=== PATIENT | female | born 1985 | race Caucasian/White ===

== ENCOUNTER 2018-04-22 21:03 | Emergency (ER) | payer MEDICAID, SELFPAY ==
[2018-04-22 21:10] VITALS: BP 124/81; PULSE 86; RESP 18; TEMP 37.1; O2SAT 97
--- NOTE | 2018-04-22 21:14 | ED.GENADUL_ITS ---
Disposition Clinical Impression: Complicated UTI (urinary tract infection) Disposition: HOME Condition: Good Instructions: Urinary Tract Infection in Women (ED), Ciprofloxacin (By mouth), Phenazopyridine (By mouth) Additional Instructions: You should be feeling better in the next couple of days. Follow-up with primary care early next week if you are not. You may use Motrin or Tylenol for fever and pain. Antibiotic as prescribed. Cut back on activities for the next couple of weeks while on antibiotic due to the risk of tendon injury. Return to ED for persistent high fevers, worsening pain, vomiting, other concerns. Prescriptions: Ciprofloxacin [Cipro] 500 mg PO BID #13 tab Phenazopyridine [Pyridium] 100 mg PO TID #5 tab Referrals: Edgar Hutchins [Primary Care Provider] - Medical Decision Making - Lab Data Results reviewed for labs ordered during visit: Yes - EKG Data -: EKG Interpreted by Me EKG shows normal: sinus rhythm, axis, intervals Rate: normal Interpretation: normal EKG - Medical Decision Making Patient here with urinary type symptoms associated with some systemic symptoms suggesting complicated UTI. Urine test is negative. Vital signs are normal. Urinalysis is positive for UTI. She has not been on antibiotics recently. As this is a complicated UTI a fluoroquinolone is recommended. EKG is normal with no QT prolongation. I did discuss the adverse effects including Achilles tendon rupture with the patient. She will cut back on her activities for the next couple weeks. She will get her first dose of Cipro here. Follow- up with primary care on Tuesday if not doing better. Return to ED for persistent high fever, increasing abdominal or back pain, vomiting. History of Present Illness - General Chief complaint: Urinary Stated complaint: ?UTI Time Seen by Provider: 04/22/18 21:14 Source: patient Mode of arrival: ambulatory Limitations: no limitations - History of Present Illness Initial comments: Patient presents to the emergency department with complaints of urinary symptoms including frequency, urgency, dysuria. She has had symptoms for just under a week. She had been traveling in [place] and is now back and wants to be evaluated. She has felt warm but has not actually taken her temperature. She has had no chills. She has nausea but no vomiting. She has some mild abdominal discomfort and is now having some low back pain. She denies any vaginal symptoms. She denies being , reports having the Mirena IUD in place. There is otherwise healthy. - Related Data Ciprofloxacin [Cipro] 500 mg PO BID #13 tab 04/22/18 Levonorgestrel [Mirena] 1 each IY 04/22/18 Phenazopyridine [Pyridium] 100 mg PO TID #5 tab 04/22/18 Allergies Allergy/AdvReac Type Severity Reaction Status Date / Time wheat Allergy Intermediate Hives Unverified 04/22/18 21:21 ethinyl estradiol Allergy Mild Itching Unverified 04/22/18 21:21 [From Seasonale contraceptive] levonorgestrel Allergy Mild Itching Unverified 04/22/18 21:21 [From Seasonale contraceptive] Review of Systems Constitutional: fever (subjective). denies: chills ENT: denies: throat pain, congestion Respiratory: denies: cough, shortness of breath Cardiovascular: denies: chest pain, palpitations Gastrointestinal: abdominal pain (mild discomfort), nausea. denies: vomiting, diarrhea Genitourinary: urgency, dysuria, frequency. denies: hematuria, discharge Musculoskeletal: back pain (mild low back pain) Skin: denies: rash Neurological: denies: headache, weakness, numbness Past Medical History - Past Medical History Medical history: no medical history Surgical history: other (orthopedic procedures) - Social History Smoking status: never smoker General Exam - General Limitations: no limitations General appearance: alert, in no apparent distress - Head Head exam: Present: atraumatic, normocephalic - Eye Eye exam: Present: normal apperance - ENT ENT exam: Present: mucous membranes moist - Respiratory Respiratory exam: Present: normal lung sounds bilaterally - Cardiovascular Cardiovascular Exam: Present: regular rate, normal rhythm, normal heart sounds - GI/Abdominal GI/Abdominal exam: Present: soft. Absent: distended, tenderness, guarding, rebound - Back Exam Back exam: Present: full ROM. Absent: tenderness, CVA tenderness (R), CVA tenderness (L) - Neurological Exam Neurological exam: Present: alert, oriented X3, CN II-XII intact. Absent: motor sensory deficit - Psychiatric Psychiatric exam: Present: normal affect, normal mood - Skin Skin exam: Present: warm, dry, intact
[2018-04-22 21:51] LABS: Bilirubin Negative (Negative); Blood Small (Negative); Clarity Cloudy; Glucose Negative (Negative); Ketones Negative (Negative); Leukocyte Esterase Moderate (Negative); Nitrite Negative (Negative); Urobilinogen 0.2 EU/dL (Up TO 0.2); pH 6.5 (5-8)
[2018-04-22 22:13] LABS: WBC >50 HPF (0-5)
[2018-04-22 22:14] LABS: Bacteria Few HPF (Negative); C & S Indicated? Yes; Casts Negative LPF (Negative); Crystals Negative HPF (Negative); Epithelial Cells Few HPF (Negative); Mucus Negative (Negative)
[2018-04-22] MEDS: Ciprofloxacin 500 MG TAB PO (22:21)
[2018-04-22] MEDS: Phenazopyridine 100 MG TAB PO (22:24)
== END 2018-04-22 22:45 | disposition home or self-care (01) ==
PROVIDERS: Emergency Provider Emergency Medicine; PCP Internal Medicine
DX: N39.0 Urinary tract infection, site not specified (principal); R11.0 Nausea; M54.5 Low back pain; R50.9 Fever, unspecified; Z87.440 Personal history of urinary (tract) infections
CPT/HCPCS: 81025; 87077; 93005; 99283; 81003; 81015; 87086; 87186; 93010

== ENCOUNTER 2019-01-23 08:43 | Outpatient (REF) | payer MEDICAID, SELFPAY ==
--- NOTE | 2019-01-23 08:00 | PAPFT_PTH ---
PATIENT: Kristine Condon LOC: [facility] U#:[id number] AGE/SX: 33/F ROOM: RE01/23/[address]: Bernadette Smith : 1985 BED: DIS: 01/23/2019 SPEC #: [id number] RECD: 01/24/19 12:55 STATUS: KAREN REKathy #: [id number] TYLER: 01/23/19 08:[address]: Bernadette Smith DEPT: [facility] Cytology RECD BY: Nehal Andino Tissues: 1 - CX/ENDOCX FOR PAP SMEARS Procedures: PAP THIN PREP/UVM Screening Comments: [id number] (CHLAMYDIA/GC) (UNSATISFACTORY FOR EVALUATION)
[2019-01-25 14:45] LABS: Chlamydia Result Negative; GC Result Negative; Specimen Description SEE COMMENTS
== END 2019-01-23 09:03 ==
LOC: NCHCN 08:43
PROVIDERS: PCP Registered Nurse; Visit Provider Registered Nurse
DX: Z12.4 Encounter for screening for malignant neoplasm of cervix (principal); Z11.3 Encounter for screening for infections with a predominantly sexual mode of transmission; Z11.51 Encounter for screening for human papillomavirus (HPV)
CPT/HCPCS: 87491; 87591; 88142; 87624

== ENCOUNTER 2019-04-22 22:47 | Emergency (ER) | payer MEDICAID, SELFPAY ==
[2019-04-22 22:51] VITALS: BP 120/79; PULSE 95; RESP 18; TEMP 37.8; O2SAT 99
--- NOTE | 2019-04-22 23:03 | ED.GENADUL_ITS ---
Discharge Plan Disposition Patient Disposition: HOME Condition: Stable Discharge Details Chief Complaint: Abd Prob Clinical Impression: Mesenteric adenitis, Abdominal pain, Diarrhea Primary Care Provider: ONDINA LUA ED Provider: Dawood Curry Home Meds and New Rx's Prescriptions: New metronidazole [Flagyl] 500 mg tablet 500 mg PO TID Qty: 21 RF: 0 ciprofloxacin HCl 500 mg tablet 500 mg PO BID Qty: 14 RF: 0 ondansetron 4 mg tablet,disintegrating 4 mg PO Q8H PRN (Reason: nausea and vomiting) Qty: 30 RF: 0 Continued Mirena 1 EACH intrauterine device 1 ea Intrauterine DAILY RF: 0 Discharge Instructions Instructions: Mesenteric Adenitis (ED) Additional Instructions: if you are not better within 1-2 weeks see your primary care provider if you feel you are becoming more ill, having worsening pain or persistent vomit return to the emergency department for reevaluation Medical Decision Making 33 yo female who denies chronic medical problems comes in with chief complaint of diarrhea and abdominal pain. She states since she has had multiple loose stools and upper abdominal discomfort with nausea, no vomit. Has also had subjective fevers. Denies recent travel, new meds or abx. She is in no distress on exam, does have pain with percussion to the upper abdomen luq/epigastric/ruq tenderness. Given her symptoms will obtain lab work to eval for pancreatitis, hepatitis and given location of pain and symptoms will obtian ct to eval for cholecystitis, colitis, enteritis. labs show no significant abnormality, ct shows mesenteric adneitis. Only has mild upper abdominal pain. Given her degree of symptoms and diarrhea, feel coverage with abx indiacted to cover for early colitis with cipro/flagyl and d/c home, return precautions given Differential Diagnosis colitis, pancreatitis, hepatitis, cholecystitis Imaging Data Radiologic Study: Attestation: I personally reviewed and interpreted this imaging study as follows: Imaging: CT Scan Radiologist's impression: EXAM: CT Abdomen and Pelvis With Contrast EXAM DATE/TIME: 04/22/2019 11:02 PM CLINICAL HISTORY: 33 years old, female; Localized; Patient HX: Diarrhea for 1 week and upper abdominal pain radiating into flank bilateral TECHNIQUE: Imaging protocol: Computed tomography images of the abdomen and pelvis with intravenous contrast. Radiation optimization: All CT scans at this facility use at least one of these dose optimization techniques: automated exposure control; mA and/or kV adjustment per patient size (includes targeted exams where dose is matched to clinical indication); or iterative reconstruction. Contrast material: OMNIPAQUE 350; Contrast volume: 100 ml; Contrast route: IV; COMPARISON: No relevant prior studies available. FINDINGS: Liver: No suspicious lesions. Gallbladder and bile ducts: No acute or concerning findings. Pancreas: Unremarkable. No ductal dilation. Spleen: No suspicious lesions. Adrenals: No suspicious nodule. Kidneys and ureters: No hydro. No suspicious lesions. Stomach and bowel: No inflammed or dilated loops. Appendix: No evidence of appendicitis. Intraperitoneal space: No free air. No significant fluid collection. SAMMY MCKINLEY Preliminary Radiology Report COMMUNICATIONS ELECTRICIAN SUPERVISOR (QA) DISCREPANCY? If there is a discrepancy between the preliminary and final interpretation, please notify [facility] via [email or web address]. If you do not have access to our QA portal, call our QA team at [phone] CONFIDENTIALITY STATEMENT This report is intended only for the use of the referring physician, and only in accordance with law, If you received this in error, call [phone] Page 2 of 2 Vasculature: Unremarkable. No acute findings Lymph nodes: Slightly prominent mesenteric lymph nodes. Bladder: Unremarkable as visualized. Reproductive: Unremarkable as visualized. Bones/joints: No acute fracture. No dislocation. Soft tissues: Unremarkable. IMPRESSION: Mild mesenteric adenitis. Lab Data Lab results reviewed: Yes I reviewed the patient's lab results. HPI General Mode of arrival: ambulatory . Date/Time Provider Initiated Documentation: 04/22/19 22:51 . Limitations to Documentation: no limitations . Information obtained by: patient . History of Present Illness 33 year old F presents to the emergency department with the chief complaint of diarrhea, described as moderate, and is localized to the abdomen. Patient reports no radiation. Patient started experiencing this day(s) (3) and it has been constant. No relieving factors improve symptom(s), No exacerbating factors reported . Patient did receive the following treatments prior to arrival, none Related Data Home Medications Medication Instructions Recorded Confirmed Mirena 1 ea INTRAUTERINE DAILY 04/22/18 04/22/19 ciprofloxacin HCl 500 mg PO BID #14 tab 04/23/19 metronidazole [Flagyl] 500 mg PO TID #21 tab 04/23/19 ondansetron 4 mg PO Q8H PRN #30 tab 04/23/19 Previous Rx's Medication Instructions Recorded ciprofloxacin HCl 500 mg PO BID #14 tab 04/23/19 metronidazole [Flagyl] 500 mg PO TID #21 tab 04/23/19 ondansetron 4 mg PO Q8H PRN #30 tab 04/23/19 Allergies Allergy/AdvReac Type Severity Reaction Status Date / Time wheat Allergy Intermediate Hives Unverified 04/22/19 22:57 ethinyl estradiol Allergy Mild Itching Unverified 04/22/19 22:57 [From Seasonale contraceptive] levonorgestrel Allergy Mild Itching Unverified 04/22/19 22:57 [From Seasonale contraceptive] General Stated Complaint: Abd Prob RENEE: 3 Review of Systems Review of Systems All systems reviewed & are unremarkable except as noted in HPI and below Constitutional Denies chills, Denies fever(s) and Denies weakness Cardiovascular Denies chest pain and Denies dyspnea Respiratory Denies cough and Denies dyspnea Gastrointestinal Denies vomiting Genitourinary Denies dysuria Integumentary/Breasts Denies rash Neurologic Denies weakness PFSH Social History Smoking/Tobacco Use Status: Never Alcohol Intake: never Drug use: Never Substance use type: does not use Do you feel safe at home: Yes Do you feel safe in your relationship?: Yes Exam Const General: no acute distress Orientation: alert HENMT Head: normal to inspection Ears: external ears normal General nose exam: external nose normal Mouth: moist mucous membranes Eyes General: appearance normal, both eyes and all related structures Neck Neck: normal visual inspection Resp Effort & Inspection: normal respiratory effort and able to speak in complete sentences Cardio Rate: regular rate GI Palpation: soft Skin General skin exam: no rashes or lesions noted Neuro General: alert and oriented x3 Extrem General: normal to inspection Psych Mental Status: mental status grossly normal Course Vital Signs Temperature 37.8 C H 04/22/19 22:51 Pulse 95 H 04/22/19 22:51 Respiratory Rate 18 04/22/19 22:51 Blood Pressure 120/79 04/22/19 22:51 Pulse Oximetry 99 04/22/19 22:51 Temperature 37.8 C H 04/22/19 22:51 Temperature Source Skin 04/22/19 22:51 Pulse 95 H 04/22/19 22:51 Respiratory Rate 18 04/22/19 22:51 Respiratory Effort Non-Labored 04/22/19 22:58 Blood Pressure 120/79 04/22/19 22:51 Blood Pressure Position Sitting 04/22/19 22:51 Pulse Oximetry 99 04/22/19 22:51 Oxygen Delivery Method Room Air 04/22/19 22:51 Oxygen Flow Rate 0 04/22/19 22:51 Pain Level 7 04/22/19 22:51
[2019-04-22] MEDS: Normal Saline 1,000 ML 1000 ML IV (23:17)
[2019-04-22] MEDS: Ondansetron 4 MG/2 ML VIAL IVP (23:18)
[2019-04-22] MEDS: Ketorolac 15 MG/ML VIAL IVP (23:19)
[2019-04-22 23:29] LABS: Abs Immature Grans 0.01 k/cumm (0.0-0.09); Absolute Basophil Count 0.02 k/cumm (0.0-0.2); Absolute Eosinophil Count 0.04 k/cumm (0.0-0.7); Absolute Lymphocyte Count 1.08 k/cumm (1.2-3.4); Absolute Monocyte Count 0.49 k/cumm (0.11-0.7); Absolute Neutrophil Count 5.13 k/cumm (1.2-6.7); Basophils % 0.3; Eosinophils % 0.6; HCT 45.9 % (36.0-46.0); HGB 15.8 g/dL (12.0-15.5); Immature Grans % 0.1; Mean Corp. HGB Concentration 34.4 g/dL (32.0-36.0); Mean Corpuscular Hemoglobin 29.9 pg (27.0-33.0); Mean Corpuscular Volume 86.9 fL (80-95); Mean Platelet Volume 9.4 fL (8.0-11.0); Monocytes % 7.2; Neutrophils % 75.8; Platelet Count 250 x1000/uL (130-400); RBC 5.28 m/cumm (4.00-5.20); RBC Distribution Width 12.8 % (11.7-14.6); White Blood Cell Count 6.77 k/cumm (4.4-10.8)
[2019-04-22 23:38] LABS: HCG Qual (Serum) Negative
[2019-04-22] MEDS: Omnipaque 350 MG/ML 100 ML BTL IJ (23:46)
--- NOTE | 2019-04-22 23:50 | DI.CT_ITS ---
SYMPTOM/DIAGNOSIS: UPPER ABDOMINAL PAIN CT ABDOMEN AND PELVIS: There are no prior comparison exams. Images were performed from the lung bases through the ischial tuberosities after IV and without oral contrast. The lung bases are clear. The heart size is normal. The liver, gallbladder, spleen, pancreas, kidneys and adrenals appear normal. There is a normal quantity of stool. There is no abnormal bowel dilatation or inflammatory change. An IUD is noted in the uterus. The urinary bladder is nearly empty. The ovaries appear normal bilaterally. There is no free air or free fluid. The appendix appears normal. There are small mesenteric lymph nodes which could indicate mesenteric adenitis. IMPRESSION: Mildly enlarged mesenteric lymph nodes which could indicate mesenteric adenitis. No inflammatory changes are seen involving the bowel.
[2019-04-22 23:52] LABS: ALT 34 U/L (14-59); AST 34 U/L (15-37); Albumin 3.5 g/dL (3.4-5.0); Alkaline Phosphatase 95 U/L (46-116); Anion Gap 11.2 mmol/L (3-11); BUN 7 mg/dL (7-18); Bilirubin, Total 0.4 mg/dL (0.2-1.0); CO2 23.8 mmol/L (21.0-32.0); CREATININE 0.76 mg/dL (0.55-1.02); Calcium 8.7 mg/dL (8.5-10.1); Chloride 100 mmol/L (98-107); Glucose 109 mg/dL (70-100); Lipase 114 U/L (73-393); Magnesium 1.5 mg/dL (1.8-2.4); Potassium 3.4 mmol/L (3.5-5.1); Sodium 135 mmol/L (136-145); Total Protein 7.3 g/dL (6.4-8.2)
--- NOTE | 2019-04-22 23:54 | DI.VRAD_ITS ---
EXAM: CT Abdomen and Pelvis With Contrast EXAM DATE/TIME: 04/22/2019 11:02 PM CLINICAL HISTORY: 33 years old, female; Localized; Patient HX: Diarrhea for 1 week and upper abdominal pain radiating into flank bilateral TECHNIQUE: Imaging protocol: Computed tomography images of the abdomen and pelvis with intravenous contrast. Radiation optimization: All CT scans at this facility use at least one of these dose optimization techniques: automated exposure control; mA and/or kV adjustment per patient size (includes targeted exams where dose is matched to clinical indication); or iterative reconstruction. Contrast material: OMNIPAQUE 350; Contrast volume: 100 ml; Contrast route: IV; COMPARISON: No relevant prior studies available. FINDINGS: Liver: No suspicious lesions. Gallbladder and bile ducts: No acute or concerning findings. Pancreas: Unremarkable. No ductal dilation. Spleen: No suspicious lesions. Adrenals: No suspicious nodule. Kidneys and ureters: No hydro. No suspicious lesions. Stomach and bowel: No inflammed or dilated loops. Appendix: No evidence of appendicitis. Intraperitoneal space: No free air. No significant fluid collection. Vasculature: Unremarkable. No acute findings Lymph nodes: Slightly prominent mesenteric lymph nodes. Bladder: Unremarkable as visualized. Reproductive: Unremarkable as visualized. Bones/joints: No acute fracture. No dislocation. Soft tissues: Unremarkable. IMPRESSION: Mild mesenteric adenitis. Dictated and Authenticated by: Mario Hurd MD. Ordering:ANGIE Seay MD
[2019-04-23] MEDS: metroNIDAZOLE 500 MG TAB PO (00:48)
[2019-04-23] MEDS: Ciprofloxacin 500 MG TAB PO (00:48)
[2019-04-23 00:50] VITALS: BP 100/56; PULSE 71; RESP 16; TEMP 36.6; O2SAT 97
[2019-04-23 05:22] LABS: Bilirubin Negative (Negative); Blood Trace-intact (Negative); Clarity Clear (Clear); Glucose Negative (Negative); Ketones Negative (Negative); Leukocyte Esterase Negative (Negative); Nitrite Negative (Negative); Specific Gravity 1.015 (1.005-1.025); Urobilinogen 0.2 EU/dL (Up TO 0.2)
[2019-04-23 05:26] LABS: Bacteria Few HPF (Negative); Casts Negative LPF (Negative); Crystals Negative HPF (Negative); Epithelial Cells Many HPF (Negative); Mucus Negative (Negative); RBC 0-2 (0-2); WBC 0-2 HPF (0-5)
[2019-04-23 05:27] LABS: C & S Indicated? No/Sq. Contamination
== END 2019-04-23 01:05 | disposition home or self-care (01) ==
PROVIDERS: Emergency Provider Emergency Medicine; PCP Registered Nurse
DX: I88.0 Nonspecific mesenteric lymphadenitis (principal); R19.7 Diarrhea, unspecified; R11.0 Nausea; R10.10 Upper abdominal pain, unspecified
CPT/HCPCS: 36415; 80053; 81025; 83690; 96361; 96374; 96375; 99285; 74177; 81003; 81015; 83735; 84703; 85025; 99284; J1885; J2405; J3490

== ENCOUNTER 2021-02-11 17:10 | Outpatient (REF) | payer MEDICAID, SELFPAY ==
--- NOTE | 2021-02-11 16:30 | PAPFT_PTH ---
PATIENT: Kristine Condon LOC: [facility] U#:[id number] AGE/SX: 35/F ROOM: RE02/11/[address]: Bernadette Smith : 1985 BED: DIS: 02/11/2021 SPEC #: [id number] RECD: 02/12/21 12:34 STATUS: KAREN REKathy #: [id number] TYLER: 02/11/21 16:[address]: Bernadette Smith DEPT: [facility] Cytology RECD BY: Nehal Andino Tissues: 1 - CX/ENDOCX FOR PAP SMEARS Procedures: PAP THIN PREP/UVM Screening HPV DNA PROBE Comments: [id number] (CHLAMYDIA/GC)
[2021-02-13 12:44] LABS: Chlamydia Result Negative (Negative); GC Result Negative (Negative)
== END 2021-02-11 17:11 | disposition home or self-care (01) ==
LOC: NCHCN 17:10
PROVIDERS: PCP Registered Nurse; Visit Provider Registered Nurse
DX: Z11.3 Encounter for screening for infections with a predominantly sexual mode of transmission (principal); Z12.4 Encounter for screening for malignant neoplasm of cervix; Z11.51 Encounter for screening for human papillomavirus (HPV)
CPT/HCPCS: 87491; 87591; 88142; 87624

== ENCOUNTER 2021-02-25 09:09 | Outpatient (REF) | payer MEDICAID, SELFPAY ==
[2021-02-25 14:27] LABS: Calculated LDL 86 mg/dL (<100); Cholesterol 177 mg/dL (<200); HDL Cholesterol 85 mg/dL (40-60); Triglyceride 30 mg/dL (<150)
[2021-03-03 08:57] LABS: IgA 199 mg/dL (85-499); Interpretation (See Note); Tissue Transglutaminase IgA <1.2 U/mL (<4.0)
== END 2021-02-25 09:10 | disposition home or self-care (01) ==
LOC: NCHCN 09:09
PROVIDERS: PCP Registered Nurse; Visit Provider Registered Nurse
DX: R19.7 Diarrhea, unspecified (principal); Z87.19 Personal history of other diseases of the digestive system; Z13.220 Encounter for screening for lipoid disorders
CPT/HCPCS: 80061; 82784; 83516